=== PATIENT | female | born 1970 ===

== ENCOUNTER → 2018-01-31 | Outpatient (CLI) | payer OTHER ==
[2013-10-30 10:27] VITALS: BP 118/58
[~2018-01-31] MED LIST: AC325T; APAP 300 MG/CODEINE 30 MG (TYLENOL #3) TAB PO PRN; CODE-54 PO; DPH25C PO; FURO40TA4 PO; INFLUENZA VACCINE IM SCH; LORATADINE (CLARITIN) 10 MG TAB PO SCH; LRT10T; LRT10T PO; ONDANSETRON 4 MG/2 ML (SDV) Z0FRAN IV PRN; ONDN4T PO; PNEUMOCOCCAL VACCINE 25 MCG/0.5 ML VIAL IM ONE; [UNRECOGNIZED DRUG - OTHER] IM SCH; diphenhydrAMINE 25 MG TAB (BENADRYL) PO SCH
== END | disposition home or self-care (01) ==
LOC: CARD 07-07 12:03 → WSo 03-26 12:47 → WOUNDCARE 10:33
PROVIDERS: ATTEND Internal Medicine Cardiovascular Disease
CPT/HCPCS: 36415; 84484; 87070; 87186; 87205; 87535; 90657; 90732